=== PATIENT | female | born 2000 | race Caucasian/White ===

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

== ENCOUNTER 2024-08-07 04:58 | Emergency (ER) | payer OTHER ==
[~2024-08-07] VITALS: Ht 165.1 cm; Wt 80.0 kg
[2024-08-07] MEDS ORDERED: NEXPLANON68 MG SUB-Q (05:17)
[2024-08-07] MEDS ORDERED: ALPRAZolam 1 MG TAB PO ONE (05:45)
[2024-08-07 05:52] LABS: BASOPHILS 0.3 % (0-2); EOSINOPHILS 1.1 % (0-6); HEMATOCRIT 42.3 % (35.0-50.0); HEMOGLOBIN 13.9 g/dL (12.0-18.0); LYMPHOCYTES 26.1 % (24-44); MCH 29.1 (27-36); MCV 88.1 fl (81-99); MONOCYTES 11.2 % (0-12); NEUTROPHILS 61.3 % (39-80); PLATELET COUNT 235 K/uL (140-440); RDW 13.3 (10.5-15.0)
[2024-08-07 06:10] LABS: BILIRUBIN, URINE NEGATIVE (negative); BLOOD/HGB, URINE TRACE-L (Negative); KETONE, URINE NEGATIVE (Negative); LEUK ESTERASE, URINE NEGATIVE (negative); NITRITE, URINE NEGATIVE (negative); PH, URINE 7.5 (5-7)
[2024-08-07 06:16] LABS: EPITHELIAL CELLS, URINE SQUAMOUS 2+ /lpf (0-1+)
[2024-08-07 06:17] LABS: BACTERIA, URINE RARE /hpf (negative); CASTS, URINE NONE SEEN \\lpf; COLLECTION TYPE, URINE CLEAN CATCH; CRYSTALS, URINE NONE SEEN (0-1+); REFLEX CULTURE, URINE No (No)
[2024-08-07 06:19] LABS: ALBUMIN 3.7 g/dL (3.4-5.0); ALBUMIN/GLOBULIN RATIO 0.95 (1.1-2.4); ANION GAP 12.9 (7-21); BILIRUBIN, TOTAL 0.4 ng/dL (0.2-1.0); BUN/CREATININE RATIO 4.87 (6.0-28.6); CALCIUM 8.8 mg/dL (8.5-10.1); CREATININE, SERUM 0.82 mg/dL (0.55-1.02); POTASSIUM 3.9 mmol/L (3.5-5.1); PROTEIN, TOTAL 7.6 g/dL (6.4-8.2); TSH, 3RD GENERATION 1.549 uIU/mL (0.358-3.740)
[2024-08-07 06:24] LABS: AMPHETAMINES, URINE NEGATIVE (NEGATIVE); BARBITURATES, URINE NEGATIVE (NEGATIVE); BENZODIAZEPINE, URINE NEGATIVE (NEGATIVE); BUPRENORPHINE, URINE NEGATIVE (NEGATIVE); CANNABINOID, URINE NEGATIVE (NEGATIVE); COCAINE, URINE NEGATIVE (NEGATIVE); ECSTASY, URINE NEGATIVE (NEGATIVE); FENTANYL, URINE NEGATIVE (NEGATIVE); METHADONE, URINE NEGATIVE (NEGATIVE); OPIATES, URINE NEGATIVE (NEGATIVE); OXYCODONE, URINE NEGATIVE (NEGATIVE); PHENCYCLIDINE, URINE NEGATIVE (NEGATIVE)
[2024-08-07 06:50] VITALS: BP 122/66
== END 2024-08-07 06:49 | disposition home or self-care (01) ==
LOC: ED 04:58
PROVIDERS: Internal Medicine
DX: R25.1 Tremor, unspecified (principal); Z79.899 Other long term (current) drug therapy
CPT/HCPCS: 36415; 80053; 80307; 81001; 83735; 84443; 84703; 85025; 99284